=== PATIENT | female | born 1985 | race Caucasian/White ===

== ENCOUNTER 2020-06-12 14:26 | Emergency (ER) | payer OTHER, SELFPAY ==
[2020-06-12 14:30] VITALS: BP 153/101; PULSE 86; RESP 20; TEMP 36.9; O2SAT 98; BMI 62.1
--- NOTE | 2020-06-12 14:50 | PC.NURSE ---
PHILOMENA HOBBS at suturing
--- NOTE | 2020-06-12 15:17 | HMH.EDANIB ---
ED Disposition Clinical Impression: Dog bite Qualifiers: Encounter type: initial encounter Qualified Code(s): W54.0XXA - Bitten by dog, initial encounter Disposition: Home, Self-Care Condition on Discharge: Good Instructions: How to Care for a Domestic Animal Bite Prescriptions: Amoxicillin/Potassium Clav [Augmentin 500mg tab] 500 mg PO TID #21 tab Transmission Status: Pending to [email or web address] #[id number] Referrals: Guerrero San JR, MD [Primary Care Provider] - - Critical Care Critical Care Time: No Attestation: On 06/12/20, the high probability of a clinically significant, sudden or life threatening deterioration of the following system(s) required my full and direct attention, intervention and personal management. The time I documented below is in addition to time spent performing reported procedures but includes the following listed in this critical care notation. Medical Decision Making - Medical Records Medical records reviewed: Yes: I reviewed the patient's medical records. - [place] Inquiry Pt receiving controlled substance: No Vital Signs: 06/12/20 14:30 Temperature 98.5 F Temperature Source Oral Pulse Rate [Right Radial] 86 Respiratory Rate 20 Blood Pressure [Right Arm] 153/101 H Blood Pressure Mean [Right Arm] 118 Blood Pressure Source [Right Arm] Automatic Cuff Blood Pressure Position [Right Arm] Sitting 02 Sat by Pulse Oximetry 98 Oxygen Delivery Method Room Air - Lab Data Lab results reviewed: Yes: I reviewed the patient's lab results. Animal Bite HPI - General Chief Complaint: Animal Bite Stated Complaint: AO 06/12/20 dog bite to face Time Seen by Provider: 06/12/20 14:40 Mode of Arrival: Ambulatory Source of Information: Patient Limitations: No Limitations Description of Symptoms (Recalled from ER Triage Doc. by RN): Pt reports she was bite by a dog just [employer]. Pt was bite a friends dog, pt states she had a layed down in the dogs face to love on him and the dog bit her, states the dog was asleep. Pt has lacerations to top lip between lip and nose and laceration to bottom lip. Flask Cleaner of dog is present and states dog is UTD on immunizations. - History of Present Illness HPI narrative: This is a 35-year-old female that presents from home after being bitten in the upper and lower lip by a friend's dog. Laceration bleeding controlled prior to arrival with pressure. Patient reports the dog bit as she was bending down to kiss the dog. Patient's friend does report that the dog is up-to-date on all of its vaccinations and is domesticated. Patient reports sharp pain at the site of laceration. Pain is rated at 7 out of 10 intensity. No modifying factors. No other injuries. Tetanus vaccine is up-to-date. - Related Data Home Medications Medication Instructions Recorded Confirmed escitalopram oxalate 20 mg tablet 20 mg PO DAILY 02/10/20 06/12/20 pantoprazole 40 mg tablet,delayed 40 mg PO DAILY 02/10/20 02/10/20 release Previous Rx's Medication Instructions Recorded fluconazole 150 mg tablet 150 mg PO Q3D 0 Days #2 tab 02/10/20 terconazole 0.4 % vaginal cream 1 appful VAGINAL QHS 7 Days #45 g 02/10/20 metronidazole 500 mg tablet 500 mg PO BID #14 tab 02/24/20 Amoxicillin/Potassium Clav 500 mg PO TID #21 tab 06/12/20 [Augmentin 500mg tab] Allergies Allergy/AdvReac Type Severity Reaction Status Date / Time No Known Allergies Allergy Verified 02/10/20 15:11 [facility] History - Hepatitis A Screen Drug use history?: No High risk sexual behaviors?: No History of sexually transmitted infection?: No Currently employed?: No Childcare worker?: No Do you have indoor plumbing?: Yes Do you have electricity?: Yes Attestation statement:: This patient has been screened for Hepatitis A risk factors. I have reviewed the patient's past medical history: Yes Medical History: Reports:: Anxiety, Depression Other Surgeries: Yes: , Tubal
[2020-06-12 15:51] VITALS: BP 123/78; PULSE 79; RESP 18; TEMP 36.9; O2SAT 98
--- NOTE | 2020-06-12 15:52 | PC.NURSE ---
animal bite form faxed to health department
== END 2020-06-12 15:52 | disposition home or self-care (01) ==
PROVIDERS: Emergency Provider Emergency Medicine; PCP Pediatrics
DX: S01.511A Laceration without foreign body of lip, initial encounter (principal); W54.0XXA Bitten by dog, initial encounter; Y92.89 Other specified places as the place of occurrence of the external cause; F41.8 Other specified anxiety disorders
CPT/HCPCS: 12014; 99282

== ENCOUNTER 2020-06-22 18:00 | Emergency (ER) | payer OTHER, SELFPAY ==
[2020-06-22 18:02] VITALS: BP 120/70; PULSE 77; RESP 18; O2SAT 99; BMI 62.1
[2020-06-22 18:13] VITALS: BP 120/70; PULSE 77; RESP 18; TEMP 36.7; O2SAT 99
== END 2020-06-22 18:14 | disposition home or self-care (01) ==
LOC: UTC 18:01
PROVIDERS: Emergency Provider Nurse Practitioner; PCP Pediatrics
DX: S01.511D Laceration without foreign body of lip, subsequent encounter (principal)

== ENCOUNTER → 2020-11-08 14:46 | Outpatient (CLI) | payer OTHER, SELFPAY ==
[2020-11-08 15:52] LABS: Triiodothryronine (T3) Uptake 31 % (23.5-40.5)
[2020-11-08 15:53] LABS: Free Thyroxine Index 3.3 ug/dL (5.93-13.13); T4 (Thyroxine) 10.6 ug/dl (5.53-11.0)
[2020-11-08 16:07] LABS: Thyroid Stimulating Hormone 1.55 uIU/mL (0.465-4.68)
[2020-11-10 15:12] LABS: LH 50.1 mIU/mL (.)
== END ==
PROVIDERS: Visit Provider Nurse Practitioner Obstetrics & Gynecology
DX: N95.1 Menopausal and female climacteric states (principal)
CPT/HCPCS: 36415; 82670; 83001; 83002; 84436; 84443; 84479

== ENCOUNTER → 2021-03-10 17:25 | Outpatient (CLI) | payer OTHER, SELFPAY ==
[2021-03-14 02:42] LABS: Neisseria gonorrhoeae, NAA Negative (Negative)
== END ==
PROVIDERS: Visit Provider Nurse Practitioner Obstetrics & Gynecology
DX: Z72.51 High risk heterosexual behavior (principal)
CPT/HCPCS: 87491; 87591